=== PATIENT | female | born 1955 | race American Indian/Alaskan Native ===

== ENCOUNTER 2021-11-11 14:49 | Emergency (ER) | payer MEDICARE ==
[2021-11-11] MEDS ORDERED: ONDANSETRON 4 MG/2 ML INJ IV ONE (16:46)
[2021-11-11 16:48] VITALS: BP 99/64
[2021-11-11] MEDS ORDERED: SODIUM CHLORIDE 0.9% 1000 ML 1,000 ML IV ONE (16:49)
--- NOTE | 2021-11-11 16:50 | Emergency Department Report ---
Stated Complaint: WEAK/VOMITTING - HPI History of Present Illness: 65-year-old female poor historian presents to the emergency department for nausea vomiting diarrhea and upper abdominal pain. Patient reports symptoms been there for 4 days, associated with generalized weakness fatigue loss of energy. History of diabetes, history of chronic kidney disease, not currently on any medications. nontoxic-appearing. In the setting of a significantly high volume and record number of patients presenting to the emergency department and the fact that we have a limited space to see patients we have implemented the provider in triage protocol this allows an expedited initial exam of patients that might otherwise have left without being seen or who would wait longer than usual to be seen by provider. I interviewed the patient and performed a limited physical exam. This patient is a pulled from the waiting room to triage room for an initial assessment of adrenal studies and then returned to the waiting room pending results of the studies. The ultimate final evaluation and disposition may be performed by another provider depending on room and provider availability. MSE screening note: Focused history and physical exam performed. Due to findings the following was ordered: ED Disposition for MSE Condition: Stable
== END 2021-11-11 23:01 | disposition left against medical advice (07) ==
LOC: ED 14:49
DX: R53.1 Weakness (principal); R11.10 Vomiting, unspecified; Z53.21 Procedure and treatment not carried out due to patient leaving prior to being seen by health care provider
CPT/HCPCS: 82962; J2405; J7030